=== PATIENT | female | born 1950 | race Caucasian/White ===

== ENCOUNTER 2020-09-30 10:26 | Outpatient (REF) | payer OTHER, SELFPAY | END 2020-09-30 10:27 | disposition home or self-care (01) | LOC: HO.LAB 10:26 | PROVIDERS: Visit Provider Internal Medicine | DX: Z20.822 Contact with and (suspected) exposure to COVID-19 (principal) | CPT/HCPCS: 36415; C9803; U0003; U0005 ==

== ENCOUNTER 2020-12-20 10:08 | Outpatient (REF) | payer OTHER, SELFPAY ==
[2020-12-20 11:05] LABS: COVID-19 Test Negative (Negative)
== END 2020-12-20 10:09 | disposition home or self-care (01) ==
LOC: HO.LAB 10:08
PROVIDERS: Visit Provider Internal Medicine
DX: Z20.822 Contact with and (suspected) exposure to COVID-19 (principal)
CPT/HCPCS: 36415; 87635; C9803

== ENCOUNTER 2021-02-03 09:25 | Outpatient (REF) | payer OTHER, SELFPAY | END 2021-02-03 09:26 | disposition home or self-care (01) | LOC: HO.LAB 09:25 | PROVIDERS: PCP Nurse Practitioner Adult Health; Visit Provider Internal Medicine | DX: Z20.822 Contact with and (suspected) exposure to COVID-19 (principal) | CPT/HCPCS: C9803; U0003; U0005 ==

== ENCOUNTER 2023-06-15 18:47 | Emergency (ER) | payer OTHER, SELFPAY ==
--- NOTE | ~2023-06-15 | XR_ITS ---
EXAMINATION: XR CHEST CLINICAL INFORMATION: Cough. COMPARISON: None available. TECHNIQUE: 2 views of the chest were obtained. FINDINGS: The cardiomediastinal silhouette is normal. There is no focal lung consolidation or pleural effusion. The bony structures and soft tissues are unremarkable. XR/XR chest 2V IMPRESSION: No active cardiopulmonary disease.
[2023-06-15 18:53] VITALS: BP 144/61; PULSE 83; RESP 22; TEMP 36.5; O2SAT 96; BMI 44.0
--- NOTE | 2023-06-15 18:56 | ED_ITS ---
HPI - General Adult General Chief complaint: Upper Respiratory Symptoms Stated complaint: Diff breathing Time Seen by Provider: 06/15/23 20:07 Source: patient History of Present Illness HPI narrative: 72-year-old female who has a history of asthma presents for evaluation of shortness of breath and cough. Patient states that she along with her granddaughter has been having a cough. Patient states it is nonproductive. She has attributed to her asthma and has been using her inhaler. She has not been on any recent antibiotics or steroids. Symptoms have been going on for approximately 1 week. No recent hospital admissions. She denies any dyspnea on exertion or chest pain. She does report a mild sinus congestion as well. She has not tried any [id number] medication for this. She denies any tobacco use. Patient has otherwise been feeling well. Given the prolonged nature of symptoms, patient presents the emergency department today. Related Data Previous Rx's Medication Instructions Recorded doxycycline hyclate 100 mg capsule 100 mg PO BID 7 days #14 caps 06/15/23 Allergies Allergy/AdvReac Type Severity Reaction Status Date / Time corn Allergy Abdominal Verified 06/15/23 18:53 Pain mushroom Allergy Abdominal Verified 06/15/23 18:53 Pain Sulfa (Sulfonamide Allergy Hives Verified 06/15/23 18:53 Antibiotics) Review of Systems Constitutional: Constitutional: Denies chills, Denies fever(s) and Denies headache(s) Eyes: Eyes: Denies change in vision and Denies other (No redness.) ENT: Denies headache(s), Denies nasal congestion, Denies nasal discharge, Denies neck pain and Denies sore throat Cardiovascular: Cardiovascular: Denies chest pain, Denies palpitations, Reports dyspnea, Denies dyspnea on exertion and Denies orthopnea Respiratory: Respiratory: Reports cough, Reports dyspnea and Denies dyspnea on exertion Gastrointestinal: Gastrointestinal: Denies abdominal pain, Denies melena, Denies hematochezia, Denies diarrhea, Denies nausea and Denies vomiting Musculoskeletal: Musculoskeletal: Denies back pain, Denies muscle weakness, Denies neck pain and Denies numbness Integumentary/Breasts: Skin/Breast: Denies rash Neurologic: Denies headache(s), Denies focal weakness and Denies numbness Psychiatric: Psychiatric: Denies depression Endocrine: Endocrine: Denies palpitations [facility] Past Medical History [facility] Narrative: Asthma Social History Social History Advance Directives: No Physical Exam ED Vital Signs: Vital Signs - 24 hr 06/15/23 18:53 06/15/23 19:58 06/15/23 19:58 Temperature 97.7 F 98.7 F Pulse Rate 83 78 Respiratory Rate 22 H 16 Blood Pressure 144/61 H 150/82 H Pulse Oximetry 96 95 95 Oxygen Delivery Method Room Air Room Air Room Air BMI result Body Mass Index 44.0 Const Other: Speaks full clear sentences. HENAZ General nose exam: No nasal discharge present and no nasal discharge noted Mouth: Normal oral and palatal mucosa present Neck Neck: Yes no lymphadenopathy Resp Effort & Inspection: normal respiratory effort Auscultation: clear to auscultation bilaterally, no rhonchi and no wheezes Cardio Rate: regular rate Rhythm: regular rhythm Skin General skin exam: no rashes or lesions noted Course Course Course Narrative: RME- 72-year-old female presents for evaluation of cough, shortness of breath for several months. Plan for viral swabs and chest x-ray. Medical Decision Making Medical Decision Making [facility] Narrative: 72-year-old female with a history of asthma, presents complaining of shortness of breath and cough. Lung sounds clear at this time. Negative viral panel and negative chest x-ray. Given that her symptoms have been going on for over 1 week and have not improved, will treat with doxycycline. Asthma appears to be well controlled at this time. Lab Data Labs: Lab Results 06/15/23 Range/Units 19:01 COVID-19 (KIRT) Negative (Negative) COVID-19 Clin Com See Note Influenza Type A (VIVI) Negative (Negative) Influenza Type B (VIVI) Negative (Negative) Influenza A & B Note See Note Radiology Impression Discussion of test interpretation with radiology: I have reviewed the radiologist's reading. Radiologist Impression: [address] [address] XRay Report Signed Patient: Carisa Montero MR#: [id number] : 1950 Acct:[id number] Age/Sex: 72 / F ADM Date: 06/15/23 Loc: .ED Attending Dr: Ordering Physician: Lv Black Date of Service: 06/15/23 Procedure(s): XR chest 2V Accession Number(s): [id number] cc: Becky French POWER PLANT MECHANIC; Lv Black ~ EXAMINATION: XR CHEST CLINICAL INFORMATION: Cough. COMPARISON: None available. TECHNIQUE: 2 views of the chest were obtained. FINDINGS: The cardiomediastinal silhouette is normal. There is no focal lung consolidation or pleural effusion. The bony structures and soft tissues are unremarkable. XR/XR chest 2V IMPRESSION: No active cardiopulmonary disease. Dictated By: Lebron Ford Signed By: <Electronically signed by Lebron Ford in OV> 06/15/231944 DD/ 22 TD/TT: Tobacco Flavorer: Discharge Plan Discharge Clinical Impression: Bronchitis Patient Disposition: Home, Self-Care Instructions: Acute Bronchitis (ED) Additional Instructions: Doxycycline as directed. Finish all antibiotics. Continue your albuterol inhaler. Follow-up with your primary care provider. Call this week to schedule a follow- up appointment. Return to the emergency department if you have any worsening of symptoms, or any concerns. Get well soon! Prescriptions: New doxycycline hyclate 100 mg capsule 100 mg PO BID 7 Days Qty: 14 0RF Interventions: ED Discharge Assessment Last Done: 06/15/23 20:43 Discharge Date/Time: 06/15/23 20:46
[2023-06-15 19:53] LABS: COVID-19 Test Negative (Negative); IDNOW Serial# 08D9AD1C; IDNOW Serial# BCCEAD1C; Influenza A Negative (Negative); Influenza B2 Negative (Negative)
[2023-06-15 19:58] VITALS: BP 150/82; PULSE 78; RESP 16; TEMP 37.1; O2SAT 95
--- NOTE | 2023-06-15 20:00 | PC.NURSE ---
Pt ca&ox4, no signs of distress. Pt denies pain. Pt reports cough x2 months with increase in cough, congestion, mucus ([id number]), post nasal drip. Pt reports a PMH of recurrent sinus infections. granddaughter in the room with pt. Plan of care ongoing.
== END 2023-06-15 20:46 | disposition home or self-care (01) ==
PROVIDERS: Physician Assistant; Emergency Provider Emergency Medicine; PCP Nurse Practitioner Adult Health
DX: J40 Bronchitis, not specified as acute or chronic (principal); Z11.52 Encounter for screening for COVID-19; I10 Essential (primary) hypertension; E78.00 Pure hypercholesterolemia, unspecified
CPT/HCPCS: 71046; 87502; 87635; 99283; 99284

== ENCOUNTER 2023-06-19 09:43 | Outpatient (AMB) | payer OTHER, SELFPAY ==
--- NOTE | 2023-06-19 09:45 | MHC.PC.OV ---
Vital Signs 06/19/23 09:54 Height 5 ft 4 in Weight 257 lb 8 oz BMI 44.2 BP 126/68 Blood Pressure Location Rt brachial Position Sitting Respiration 16 Pulse 86 Pulse Source Pulse Oximeter Temp 98.7 F Temp Source Oral Pulse Oximetry (%) 97 Intake Visit Reasons: TRAINING OFFICER, neck and back pain Intake Note: Patient is here today to establish care as a new patient. Patient was previously seen by [facility], patient reports she has requested a record transfer and she has not received an update for this request. Patient reports she has neck and back pain due to hard work. 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 Accompanied by: Self / Same As Patient Allergies corn Allergy (Verified 06/19/23 09:58) Abdominal Pain mushroom Allergy (Verified 06/19/23 09:58) Abdominal Pain Sulfa (Sulfonamide Antibiotics) Allergy (Verified 06/19/23 09:58) Hives Medication List - Last Reconciled 06/19/23 by Orestes Chinchilla MD aripiprazole (Abilify) 10 mg PO DAILY buspirone 15 mg PO BID dicyclomine 10 mg PO TID PRN doxycycline hyclate 100 mg PO BID 7 days levothyroxine 75 mcg PO DAILY lisinopril 30 mg PO DAILY loratadine (Allergy Relief (loratadine)) 10 mg PO DAILY oxycodone ER (OxyContin) 60 mg PO BID simvastatin 20 mg PO DAILY venlafaxine ER 150 mg PO DAILY Tobacco use date assessed: 06/19/23 Fall risk assessment: 1 Fall in past year Last assessed Fall Risk: 06/19/23 Dental Screening Dental Screen Date: 06/19/23 Did you have a dental visit in the last 12 months?: Yes Did you have a dental problem in the last 6 months where you did not have access to dental care?: No Was dental information given to patient?: Patient has dentist HPI TRAINING OFFICER, neck and back pain HPI Details New patient Prior PCP:? Rajwinder French Last office visit/CPE: a few weeks ago. Recent CPE Acute issue(s): Neck & Back pain. h/o Laminectomy C4-6 1995 PMHx: HTN, HLD, Achalasia & GERD. Anxiety & Depression. IBS, Asthma, Hypothyroidism SurgHx: Laminectomy in 1995, Plantar fasciitis release. Tubal Ligation. FHx: Mom: Breast CA, Uterine CA, Colon CA, Throat CA. Dad: Heart Dz SocHx: Smoked 1/2 ppd x 15 yrs and Quit Age 31. EtOH: Special Occassions 1 drink. MJ almost daily. PFSH Medical History (Updated 06/19/23 @ 10:46 by Dre Sahu) Depression Anxiety Incontinence Achalasia GERD (gastroesophageal reflux disease) IBS (irritable bowel syndrome) Osteoarthritis cervical spine Edema Arthritis High blood cholesterol Hypertension Sinusitis Asthma Plantar fasciitis Surgical History (Updated 06/19/23 @ 10:24 by Jodi Christianson CMA) History of tubal ligation History of laminectomy Family History (Updated 06/19/23 @ 10:26 by Jodi Christianson CMA) Mother AA (alcohol abuse) Cancer Father Hypertension Social History (Updated 06/19/23 @ 10:18 by Jodi Christianson CMA) Household Members: Adopted Family Housing: Apartment Alcohol intake: never Patient Tobacco Use Status: Former Tobacco user Cigarette Packs Per Day: 0.5 Cigarettes Per Day: 10 Years Smoked: 15 e-Cigarette/Vaping Use: Never Used Substance Use Type: Marijuana service: No Current occupational status: disabled (Neck and back pain) Current occupational exposures/hazards: No Sexual orientation: Unable to collect Gender identity: Unable to collect Cognitive needs: No Hearing needs: No Vision needs: Yes (wears glasses) Questionnaire PHQ-9 Over the last 2 weeks, how often have you been bothered by any of the following problems? 1. Little interest or pleasure in doing things: not at all 2. Feeling down, depressed, or hopeless: several days 3. Trouble falling or staying asleep, or sleeping too much: not at all 4. Feeling tired or having little energy: several days 5. Poor appetite or overeating: not at all 6. Feeling bad about yourself - or that you are a failure or have let yourself or your family down: not at all 7. Trouble concentrating on things, such as reading the newspaper or watching television: not at all 8. Moving or speaking so slowly that other people could have noticed. Or the opposite - being so fidgety or restless that you have been moving around a lot more than usual: not at all 9. Thoughts that you would be better off or of hurting yourself in some way: not at all Total score: 2 Depression Screening Interpretation: Negative Depression Screening Done: Yes 14988 - PHQ-9 Billing: Yes Source: Developed by Drs. Lebron Silva, Bri Nuñez, Fareed Willoughby and colleagues, with an educational mary from [employer]. Thrive Questionnaire Date Thrive assessed: 06/19/23 I am a: Patient What is your living situation today?: I have a steady place to live Within the past 12 months, did the food you bought not last and you didn't have the money to get more?: Never true Within the past 12 months, did you worry whether your food would run out before you got money to buy more?: Never true Do you have trouble paying for medicines?: No Do you have trouble getting transportation to medical appointments?: No Do you have trouble paying your heating and electricity bill?: No Do you have trouble taking care of your child, family member or friend?: No Do you have trouble with day-to-day activities such as bathing, preparing meals, shopping, managing finances, etc.?: Yes Are you currently unemployed and looking for a job?: No Are you interested in more education?: No Please select the resources that you would like help with: Daily support (Bathing, preparing meals, shopping) Currently or been in a relationship where the following occur: no concerns reported AUDIT C Alcohol Use Questionnaire (AUDIT-C) 1. How often do you have a drink containing alcohol?: Never 3. How often do you have six or more drinks on one occasion?: Never Total Score: 0 KVNG-7 AMB Questionnaire KVNG-7 Date KVNG - 7 assessed: 06/19/23 Feeling nervous, anxious, or on edge: 1 = Several days Not being able to stop or control worryin = Not at all Worrying too much about different things: 0 = Not at all Trouble relaxin = Several days Being so restless that it is hard to sit still: 1 = Several days Becoming easily annoyed or irritable: 0 = Not at all Feeling afraid as if something awful might happen: 0 = Not at all Total KVNG-7 score (0-4 normal; 5-9 mild; 10-14 moderate; 15-21 severe): 3 Source: Developed by Drs. Lebron Silva, Bri Nuñez, Fareed Willoughby and colleagues, with an educational mary from [employer]. KVNG-7 Assessment Billing KVNG-7 Assessment Tool: KVNG-7 Assessment 21844 ACT Questionnaire In the past 4 weeks, how much of the time did your asthma keep you from getting as much done at work, school or at home?: None of the time During the past 4 weeks, how often have you had shortness of breath?: 1-2 times a week During the past 4 weeks, how often did your asthma symptoms wake you up at night or earlier than usual in the morning?: Not at all During the past 4 weeks, how often have you had to use your rescue inhaler or nebulizer medication?: 2-3 times a week How would you rate your asthma control during the past 4 weeks?: Well controlled ACT Interpretation: Negative Score: 21 Review of Systems Const Denies chills, Denies fatigue, Denies fever(s), Denies headache(s) and Denies weakness ENT Denies dizziness and Denies headache(s) Card Denies chest pain, Denies lightheadedness, Denies dyspnea and Denies other (Palpitations) Resp Denies cough, Denies dyspnea, Denies wheezing and Denies other ( shortness of breath) Musc Denies numbness and Denies tingling Neuro Denies dizziness, Denies headache(s), Denies numbness, Denies tingling, Denies paresthesias and Denies weakness Psych Denies anxiety and Denies depression Endo Denies fatigue Aller/Immun Denies wheezing Physical exam (Primary Care) Vital Signs: Last Vital Signs Temp 98.7 F 06/19/23 09:54 Pulse 86 06/19/23 09:54 Resp 16 06/19/23 09:54 BP 126/68 06/19/23 09:54 Pulse Ox 97 06/19/23 09:54 BMI result Body Mass Index 44.2 Tobacco/Smoking Status: Tobacco use Status Tobacco use date assessed 06/19/23 06/19/23 10:09 Patient Tobacco Use Status Former Tobacco user 06/19/23 10:18 Tobacco use type 06/19/23 10:15 e-Cigarette/Vaping Use Never Used 06/19/23 10:18 PHQ-9: PHQ-9 Score PHQ-9: Total score 2 06/19/23 10:27 Depression Screening Interpretation: Negative Thrive Assessment: Date of Thrive Assessment Date Thrive assessed 06/19/23 06/19/23 10:13 Currently or been in a relationship where the following occur: no concerns reported Const General: no acute distress and well developed Nutritional Appearance: well nourished Orientation/consciousness: patient oriented x3 HENMT Head: Yes normocephalic and Yes atraumatic Eyes General: appearance normal, both eyes and all related structures Pupils: Equal, round and reactive pupils present EOM: EOMs intact bilaterally Resp Effort & Inspection: normal respiratory effort Auscultation: clear to auscultation bilaterally Cardio Rate: regular rate Rhythm: regular rhythm Heart sounds: S1 normal heart sound present, S2 normal heart sound present, no gallops, no murmurs and no rubs Neuro General: patient oriented x3 and gait normal Cranial nerves: Yes Equal, round and reactive pupils present Psych Affect: normal affect Assessment and Plan Assessment & Plan (1) Hypertension: Code(s): I10 - Essential (primary) hypertension Plan: Blood?pressure?is?controlled.??Goal?is?less?than?140/90 Continue?current?medication (2) High blood cholesterol: Code(s): E78.00 - Pure hypercholesterolemia, unspecified Plan: Check?lipids (3) Cervicalgia: Code(s): M54.2 - Cervicalgia Plan: Chronic?Neck?and?back?pain with?prior?cervical?laminectomy. She?is?on?rather?high?doses?of?opioids?and?we?discussed?that?we?will?need?more?investigation?regarding?this. I?am?referring?her?to?pain?management (4) Back pain: Code(s): M54.9 - Dorsalgia, unspecified Plan: As?above (5) IBS (irritable bowel syndrome): Code(s): K58.9 - Irritable bowel syndrome without diarrhea Plan: Increase?hydration?and?will?give?her?a?script?for?soluble?fiber Continue?dicyclomine (6) Asthma: Code(s): J45.909 - Unspecified asthma, uncomplicated Plan: Continue?inhaler?as?needed (7) GERD (gastroesophageal reflux disease): Code(s): K21.9 - Gastro-esophageal reflux disease without esophagitis Plan: Achalasia?and?GERD Continue?pantoprazole (8) Hypothyroidism: Code(s): E03.9 - Hypothyroidism, unspecified Plan: Check?thyroid?hormone?levels Continue?levothyroxine (9) Laboratory exam ordered as part of routine general medical examination: Code(s): Z00.00 - Encounter for general adult medical examination without abnormal findings Plan: Check?labs Medications: New calcium polycarbophil (FiberCon) 625 mg PO DAILY 30 tabs 2RF 30 days Coding Level of Care Code New Pt Level 4 (90654) Diagnoses Hypertension I10 High blood cholesterol E78.00 Cervicalgia M54.2 Back pain M54.9 IBS (irritable bowel syndrome) K58.9 Asthma J45.909 GERD (gastroesophageal reflux disease) K21.9 Hypothyroidism E03.9 Laboratory exam ordered as part of routine general medical examination Z00.00 Additional Codes KVNG-7 Assessment Billing - KVNG-7 Assessment Tool: KVNG-7 Assessment 36006 ([id number])
[2023-06-19 09:54] VITALS: BP 126/68; PULSE 86; RESP 16; TEMP 37.1; O2SAT 97; BMI 44.2
== END 2023-06-19 10:54 | disposition home or self-care (01) ==
PROVIDERS: PCP Nurse Practitioner Adult Health; Visit Provider Family Medicine
DX: I10 Essential (primary) hypertension (principal); E78.00 Pure hypercholesterolemia, unspecified; M54.2 Cervicalgia; M54.9 Dorsalgia, unspecified; K58.9 Irritable bowel syndrome, unspecified; J45.909 Unspecified asthma, uncomplicated; K21.9 Gastro-esophageal reflux disease without esophagitis; E03.9 Hypothyroidism, unspecified; Z00.00 Encounter for general adult medical examination without abnormal findings
CPT/HCPCS: 99204

== ENCOUNTER 2023-07-26 10:41 | Emergency (ER) | payer OTHER, SELFPAY ==
--- NOTE | ~2023-07-26 | XR_ITS ---
EXAMINATION: XR KNEE, LEFT CLINICAL INFORMATION: Pain. COMPARISON: None available. TECHNIQUE: Four views of the left knee. FINDINGS: There is mild loss of medial compartment joint space. There is no bony erosive changes, loose bodies or joint effusion. No acute fracture or dislocation seen. XR/XR knee LT 3V IMPRESSION: Mild degenerative changes medial compartment left knee. No visible acute fracture or dislocation seen.
[2023-07-26 10:58] VITALS: BP 177/94; PULSE 97; RESP 20; TEMP 36.4; O2SAT 97; BMI 42.9
--- NOTE | 2023-07-26 17:09 | ED.EXTPRO ---
HPI - Extremity Problem General Chief complaint: Extremity Problem Stated complaint: Knee pain Time Seen by Provider: 07/26/23 17:05 Source: patient, RN notes reviewed and old records reviewed Mode of arrival: ambulatory History of Present Illness HPI Narrative: 73-year-old female with a past medical history of hypothyroid, asthma, IBS, GERD, HTN, HLD, chronic opiate use, presenting to the ED complaining of left knee pain x 3 days. Denies known injury/trauma or fall. Patient states she may have twisted knee. Denies numbness, tingling, weakness, pedal edema, calf pain, fever. Admits takes OxyContin for back pain which is not helping. MD Complaint: extremity pain and extremity swelling Onset (ago): day(s) Related Data Home Medications Medication Instructions Recorded Confirmed aripiprazole 10 mg tablet (Abilify) 10 mg PO DAILY 06/19/23 06/19/23 buspirone 15 mg tablet 15 mg PO BID 06/19/23 06/19/23 dicyclomine 10 mg capsule 10 mg PO TID PRN abdominal pain 06/19/23 06/19/23 levothyroxine 75 mcg capsule 75 mcg PO DAILY 06/19/23 06/19/23 lisinopril 30 mg tablet 30 mg PO DAILY 06/19/23 06/19/23 loratadine 10 mg tablet (Allergy 10 mg PO DAILY 06/19/23 06/19/23 Relief (loratadine)) oxycodone 60 mg tablet,crush 60 mg PO BID 06/19/23 06/19/23 resistant,extended release 12 hr (OxyContin) simvastatin 20 mg tablet 20 mg PO DAILY 06/19/23 06/19/23 venlafaxine 150 mg 150 mg PO DAILY 06/19/23 06/19/23 capsule,extended release 24 hr Previous Rx's Medication Instructions Recorded doxycycline hyclate 100 mg capsule 100 mg PO BID 7 days #14 caps 06/15/23 calcium polycarbophil 625 mg 625 mg PO DAILY 30 days #30 tabs 06/19/23 tablet (FiberCon) diclofenac sodium 1 % topical gel 2 g topical QID PRN pain (scale 07/26/23 (Aleve (diclofenac)) score 1-3) #100 grams ketorolac 10 mg tablet 10 mg PO TID PRN pain 5 days #15 07/26/23 tabs Allergies Allergy/AdvReac Type Severity Reaction Status Date / Time corn Allergy Abdominal Verified 06/19/23 09:58 Pain mushroom Allergy Abdominal Verified 06/19/23 09:58 Pain Sulfa (Sulfonamide Allergy Hives Verified 06/19/23 09:58 Antibiotics) Review of Systems Review of Systems: Constitutional: No Fever, No Chills ENT/Mouth: No Ear Pain, No Nasal Congestion, No sore throat, No Rhinorrhea, No Swallowing Difficulty Cardiovascular: No Chest Pain, No SOB Respiratory: No Cough, No Sputum Gastrointestinal: No Nausea, No Vomiting,No Abdominal pain Genitourinary: No Dysuria, No Urinary Frequency, No Hematuria, No Flank Pain Musculoskeletal:+joint pain, No Myalgias, + Joint Swelling Skin: No Skin Lesions, No rash Neuro: No Weakness, No Numbness, No Paresthesias Yes all other systems are reviewed and are negative Constitutional: Constitutional: Reports as per [facility] Past Medical History Attestation statement: The following information was validated with the patient. Source: old records reviewed Medical History Depression Anxiety Incontinence Achalasia GERD (gastroesophageal reflux disease) IBS (irritable bowel syndrome) Osteoarthritis cervical spine Edema Arthritis High blood cholesterol Hypertension Sinusitis Asthma Plantar fasciitis Surgical History History of tubal ligation History of laminectomy Family History Family History Mother AA (alcohol abuse) Cancer Father Hypertension Social History Social History Household Members: Adopted Family Housing: Apartment Alcohol intake: never Patient Tobacco Use Status: Former Tobacco user Cigarette Packs Per Day: 0.5 Cigarettes Per Day: 10 Years Smoked: 15 e-Cigarette/Vaping Use: Never Used Substance Use Type: Marijuana Advance Directives: No Advance Directives Information Provided: No service: No Current occupational status: disabled (Neck and back pain) Current occupational exposures/hazards: No Sexual orientation: Unable to collect Gender identity: Unable to collect Cognitive needs: No Hearing needs: No Vision needs: Yes (wears glasses) Physical Exam Vital Signs: Vital Signs: Last Vital Signs Temp 97.6 F 07/26/23 10:58 Pulse 97 07/26/23 10:58 Resp 20 07/26/23 10:58 BP 177/94 H 07/26/23 10:58 Pulse Ox 97 07/26/23 10:58 O2 Del Method Room Air 07/26/23 10:58 BMI result Body Mass Index 42.9 Const: General: cooperative, healthy appearing and no acute distress Orientation/consciousness: patient oriented x3 Limitations: no limitations HEENT: Head: Yes normal to inspection and Yes atraumatic Ears: hearing grossly normal bilaterally General nose exam: Normal external nose present Face and sinus: Yes normal facial exam Eyes: General: appearance normal, both eyes and all related structures EOM: EOMs intact bilaterally Neck: Neck: Yes normal visual inspection and Yes no meningeal signs Resp: Effort & Inspection: normal respiratory effort and no respiratory distress Cardio: Rate: regular rate : General: Yes no CVA tenderness Back/Spine/Pelvis: Back: no CVA tenderness Skin: Rashes: no rashes Wounds: no wounds Neuro: General: patient oriented x3, tone normal and no meningeal signs Cranial nerves: Yes CN's II-XII intact bilaterally Gait exam (Neuro): Normal gait present Extrem: Other: Left knee with mild swelling. No deformity/erythema. Diffusely tender to palpation. Limited flexion and extension secondary to pain with chronic LE bilateral pitting edema. No calf tenderness. Neurovascularly intact distally. Course Course Course Narrative: XR knee LT 3V IMPRESSION: Mild degenerative changes medial compartment left knee. No visible acute fracture or dislocation seen. Results discussed with patient including worrisome signs and symptoms and strict return precautions, and when to return to the emergency department. They verbalized understanding and feel safe for discharge at this time. Medical Decision Making Medical Decision Making MDM Narrative: 73-year-old female with a past medical history of hypothyroid, asthma, IBS, GERD, HTN, HLD, chronic opiate use, presenting to the ED complaining of left knee pain x 3 days. On exam vital signs stable, NAD, nontoxic appearing, physical exam as noted above. Concern for osteoarthritis vs tendon/ligamental or meniscal injury. No evidence of septic joint/arthritis. Unlikely fracture Plan: X-ray, pain control. Per [facility] review patient filled OxyContin ER 60 mg on 07/11/2023 28 days worth, 56 pills Discussed at length with patient limitation of chronic opiates with what we can do today in the emergency department Please refer to course for remaining clinical decision making, interpretation of labs/imaging results, and discussions with consultants and/or family members. Differential Diagnosis Differential Diagnoses: The differential diagnosis associated with the presentation includes As above Radiology Impression Discussion of test interpretation with radiology: I have reviewed the radiologist's reading. External Record Review External record reviewed: Inpatient record, Office record, Outpatient record, Prior outpatient labs, Prior outpatient radiology, Primary care record and Outside ED record Tests considered The following testing was considered but not selected: As above Discharge Plan Discharge Clinical Impression: Knee osteoarthritis Patient Disposition: Home, Self-Care Instructions: Osteoarthritis (DC) Additional Instructions: Your x-ray shows osteoarthritis. Continue taking previously prescribed opiates In addition ketorolac as an anti-inflammatory/pain medicine take with food. Please do not take both ketorolac trauma Motrin/Aleve or ibuprofen, only be take 1 of these medications as they are all in the same class Diclofenac as a topical anti-inflammatory/pain medicine Follow-up with her doctor and orthopedic Prescriptions: New ketorolac 10 mg tablet 10 mg PO TID PRN (Reason: pain) 5 Days Qty: 15 0RF diclofenac sodium [Aleve (diclofenac)] 1 % gel 2 g topical QID PRN (Reason: pain (scale score 1-3)) Qty: 100 0RF Rx Instructions: apply to single elbow, wrist or hand; for hand includes palm/fingers/back of hand No Action doxycycline hyclate 100 mg capsule 100 mg PO BID 7 Days Qty: 14 0RF venlafaxine 150 mg capsule,extended release 24hr 150 mg PO DAILY buspirone 15 mg tablet 15 mg PO BID levothyroxine 75 mcg capsule 75 mcg PO DAILY lisinopril 30 mg tablet 30 mg PO DAILY aripiprazole [Abilify] 10 mg tablet 10 mg PO DAILY simvastatin 20 mg tablet 20 mg PO DAILY oxycodone [OxyContin] 60 mg tablet,oral only,ext.rel.12 hr 60 mg PO BID loratadine [Allergy Relief (loratadine)] 10 mg tablet 10 mg PO DAILY dicyclomine 10 mg capsule 10 mg PO TID PRN (Reason: abdominal pain) calcium polycarbophil [FiberCon] 625 mg tablet 625 mg PO DAILY 30 Days Qty: 30 2RF Referrals: [facility] [Provider Group] Becky French, [employer]PERATOR [Primary Care Provider] -
[2023-07-26] MEDS: Ketorolac Tromethamine 30 MG/ML VIAL IM (18:53)
== END 2023-07-26 19:06 | disposition home or self-care (01) ==
PROVIDERS: Emergency Provider Internal Medicine; PCP Nurse Practitioner Adult Health
DX: M17.12 Unilateral primary osteoarthritis, left knee (principal); M25.562 Pain in left knee; I10 Essential (primary) hypertension; E78.00 Pure hypercholesterolemia, unspecified; Z87.891 Personal history of nicotine dependence; Z79.899 Other long term (current) drug therapy; Z79.02 Long term (current) use of antithrombotics/antiplatelets
CPT/HCPCS: 73562; 96372; 99283; 99284; J1885

== ENCOUNTER 2023-10-27 19:15 | Emergency (ER) | payer OTHER, SELFPAY ==
--- NOTE | ~2023-10-27 | XR_ITS ---
EXAMINATION: XR LUMBOSACRAL SPINE CLINICAL INFORMATION: Lower back pain. COMPARISON: Chest x-ray dated 06/15/2023. TECHNIQUE: Three views of the lumbosacral spine. FINDINGS: Normal alignment. No acute fracture or abnormal paraspinal soft tissue changes. Moderate degenerative disc disease at L4-L5 and L5-S1 with disc space narrowing and vertebral endplate sclerosis and spurring. Moderate facet arthropathy in the mid and lower lumbar spine. Mild vertebral spondylosis in lower thoracic spine. Sacroiliac joints, pubic symphysis and hip joints to the extent included are unremarkable. Approximately 0.2 cm calcification seen projected over the lower pole of the left kidney, likely a small left renal calculus. Several phleboliths are seen in the pelvis. Bowel gas pattern is unremarkable. XR/XR lumbar spine 2-3V IMPRESSION: * No acute fracture or malalignment. * Moderate degenerative disc disease and facet arthropathy in the mid and lower lumbar spine. * Probable 0.2 cm left renal calculus.
--- NOTE | ~2023-10-27 | CT_ITS ---
EXAMINATION: CT ABDOMEN AND PELVIS WITHOUT CONTRAST CLINICAL INFORMATION: Left flank pain. COMPARISON: None available. TECHNIQUE: Multidetector volumetric imaging was performed from the superior aspect of the liver through the pubic symphysis. Sagittal and coronal reformatted images were obtained on the technologist's workstation. This CT examination was performed using dose optimization techniques as appropriate, variously including the following: *Automated exposure control *Adjustment of mA and/or kV according to patient size (this includes techniques or standardized protocols for targeted exams where dose is matched to indication/reason for exam; i.e. extremities or head) *Use of iterative reconstruction technique DLP: 1140 mGy-cm FINDINGS: LUNG BASES: The visualized lung bases are unremarkable. LIVER, GALLBLADDER, AND BILIARY TREE: The liver is normal in size, shape, and attenuation. No focal hepatic lesion or biliary ductal dilatation is present. The gallbladder is unremarkable with no evidence of radiopaque gallstones, gallbladder wall thickening, or obvious pericholecystic inflammatory changes. PANCREAS: Unremarkable. SPLEEN: Unremarkable. ADRENAL GLANDS: Unremarkable. KIDNEYS AND URETERS: The kidneys are normal in size, shape, and attenuation. No hydronephrosis, hydroureter, or calculi seen. No perinephric stranding. BLADDER: Unremarkable. GASTROINTESTINAL TRACT: The small and large bowel are unremarkable. The appendix is unremarkable. ABDOMINAL WALL: No significant hernia is appreciated. LYMPH NODES: Normal. VASCULAR: Unremarkable. PELVIC VISCERA: Unremarkable. OSSEOUS STRUCTURES: Multilevel degenerative spondylosis spine. CT/CT abdomen pelvis wo IV con IMPRESSION: No acute abnormality CT scan abdomen pelvis. Fleischner guidelines were followed.
[2023-10-27 19:25] VITALS: BP 131/65; PULSE 83; RESP 18; TEMP 36.3; O2SAT 98; BMI 42.9
--- NOTE | 2023-10-27 19:26 | ED_ITS ---
HPI - General Adult General Chief complaint: Back Pain/Injury Stated complaint: Bilateral leg swelling/Back pain/Hand numbness Time Seen by Provider: 10/27/23 21:08 Source: patient and family Mode of arrival: ambulatory Limitations: no limitations History of Present Illness HPI narrative: 73-year-old female with a history of hypertension, hyperlipidemia, asthma, hyperthyroidism, GERD, IBS, chronic neck and upper back pain status post laminectomy who presents emergency department for evaluation of lower back left flank pain x2 days. She states the pain came on suddenly and has been intermittent. She describes it as a knife-like pain which is 10/10 at its worse and is currently 7/10. She denies any injury to her back. The pain does not change with movement or breathing. The patient denied fever, chills, cough, chest pain or shortness of breath. She has had no nausea vomiting or diarrhea. She has noted some urinary frequency but no dysuria. Patient states that she also has noted swelling of her lower extremities which is symmetric. She believes that she had similar swelling in the past and had taken a course of Lasix with improvement of the swelling. Related Data Home Medications Medication Instructions Recorded Confirmed aripiprazole 10 mg tablet (Abilify) 10 mg PO DAILY 06/19/23 06/19/23 buspirone 15 mg tablet 15 mg PO BID 06/19/23 06/19/23 dicyclomine 10 mg capsule 10 mg PO TID PRN abdominal pain 06/19/23 06/19/23 levothyroxine 75 mcg capsule 75 mcg PO DAILY 06/19/23 06/19/23 lisinopril 30 mg tablet 30 mg PO DAILY 06/19/23 06/19/23 loratadine 10 mg tablet (Allergy 10 mg PO DAILY 06/19/23 06/19/23 Relief (loratadine)) oxycodone 60 mg tablet,crush 60 mg PO BID 06/19/23 06/19/23 resistant,extended release 12 hr (OxyContin) simvastatin 20 mg tablet 20 mg PO DAILY 06/19/23 06/19/23 venlafaxine 150 mg 150 mg PO DAILY 06/19/23 06/19/23 capsule,extended release 24 hr Previous Rx's Medication Instructions Recorded doxycycline hyclate 100 mg capsule 100 mg PO BID 7 days #14 caps 10/27/23 calcium polycarbophil 625 mg 625 mg PO DAILY 30 days #30 tabs 06/19/23 tablet (FiberCon) diclofenac sodium 1 % topical gel 2 g topical QID PRN pain (scale 07/26/23 (Aleve (diclofenac)) score 1-3) #100 grams ketorolac 10 mg tablet 10 mg PO TID PRN pain 5 days #15 07/26/23 tabs cyclobenzaprine 10 mg tablet 10 mg PO TID PRN pain, muscle 10/27/23 spasm #15 tabs furosemide 40 mg tablet (Lasix) 40 mg PO DAILY #14 tabs 10/27/23 ketorolac 10 mg tablet 10 mg PO Q6H PRN pain 5 days #20 10/27/23 tabs Allergies Allergy/AdvReac Type Severity Reaction Status Date / Time corn Allergy Abdominal Verified 10/27/23 19:25 Pain mushroom Allergy Abdominal Verified 10/27/23 19:25 Pain Sulfa (Sulfonamide Allergy Hives Verified 10/27/23 19:25 Antibiotics) Review of Systems 2 Review of Systems: Yes all other systems are reviewed and are negative [facility] Past Medical History [facility] Narrative: Social history: She denies tobacco, alcohol and drug use. Medical History Depression Anxiety Incontinence Achalasia GERD (gastroesophageal reflux disease) IBS (irritable bowel syndrome) Osteoarthritis cervical spine Edema Arthritis High blood cholesterol Hypertension Sinusitis Asthma Plantar fasciitis Surgical History History of tubal ligation History of laminectomy Family History Family History Mother AA (alcohol abuse) Cancer Father Hypertension Social History Social History Household Members: Adopted Family Housing: Apartment Alcohol intake: never Patient Tobacco Use Status: Former Tobacco user Cigarette Packs Per Day: 0.5 Cigarettes Per Day: 10 Years Smoked: 15 e-Cigarette/Vaping Use: Never Used Substance Use Type: Marijuana Advance Directives: No Advance Directives Information Provided: Yes service: No Current occupational status: disabled (Neck and back pain) Current occupational exposures/hazards: No Sexual orientation: Unable to collect Gender identity: Unable to collect Cognitive needs: No Hearing needs: No Vision needs: Yes (wears glasses) Physical Exam ED Vital Signs: Vital Signs - 24 hr 10/27/23 19:25 10/27/23 22:00 Temperature 97.3 F 98.2 F Pulse Rate 83 72 Respiratory Rate 18 16 Blood Pressure 131/65 138/63 Pulse Oximetry 98 97 Oxygen Delivery Method Room Air Room Air BMI result Body Mass Index 42.9 Vital signs were normal. Exam: General: Awake, alert in no distress, elevated weight 13.4 kg and BMI 42.9 kg per m2 Head: Normocephalic, atraumatic EENT: PERRL, Lids normal, sclera normal, conjunctiva normal, nose normal , ears normal, throat without erythema or exudates Neck: Supple, no adenopathy Lung: breath sounds symmetric, no wheezing, rales or rhonchi Chest: symmetric movement, nontender Heart: regular rate and rhythm, normal S1, S2 no murmurs or rubs Abdomen: soft, non-tender, nondistended, normal bowel sounds Back: No vertebral tenderness, patient does have tenderness palpation over the left paraspinal muscles with no spasm, no CVA tenderness Extremities: no deformities, moves all extremities symmetrically, 1+ pitting edema symmetric Neuro: Awake, alert, oriented, normal speech, cranial nerves intact, moves all extremities symmetrically Psych: Pleasant, cooperative Course Course Course Narrative: This is a rapid medical exam: Additional HPI, ROS, PE not included below will be deferred to primary provider. Patient is a 73-year-old female with history of asthma, HTN, arthritis, edema, IBS, GERD, anxiety and depression presenting to the emergency department with complaint of left lower back pain as well as bilateral lower leg swelling for the past 3-4 days. Called PCP who advised compression stockings but patient states she has been unable to try the stockings due to her back pain. Denies any urinary symptoms. Denies any fall or other trauma. Plan: lumbar x-ray, UA, labs Medications Administered Discontinued Medications Generic Name Dose Route Start Last Admin Trade Name Freq PRN Reason Stop Dose Admin Ketorolac Tromethamine 30 mg 10/27/23 21:37 10/27/23 21:48 Ketorolac Tromethamine 15 Mg/Ml Vial IVPUSH 10/27/23 21:38 30 mg ONCE STA Administration Medical Decision Making Medical Decision Making [facility] Narrative: 73-year-old female with a history of hypertension, hyperlipidemia, asthma, hyperthyroidism, GERD, IBS, chronic neck and upper back pain status post laminectomy who presents emergency department for evaluation of intermittent, severe, lower back/ left flank pain x2 days. Pain came on suddenly and has been intermittent, she describes it as a knife-like pain with no radiation to her abdomen, no change with movement or breathing. Patient also complained of lower extremity swelling x1 week. Vital signs were normal. Examination did reveal tenderness palpation of her left paraspinal muscles with no CVA tenderness and no spasm. Patient had no abdominal tenderness. She does have 1+ pitting edema in her lower extremities which are symmetric. Differential diagnosis: ?Includes but is not limited to musculoskeletal strain, renal colic, ureteral colic, urinary tract infection, anemia, electrolyte abnormality, peripheral edema, congestive heart failure Following evaluation was ordered: CBC, CMP, BNP, urinalysis, x-rays lumbar spine, CT scan abdomen pelvis without IV contrast Patient was initially treated with the following: IV insert, Toradol 30 mg IV Course: 23:36 My interpretation patient's laboratory evaluation is as follows: CBC was normal., bicarb elevated 30. Chloride low 109. AST and ALT elevated 34 and 48. Urinalysis negative. BNP normal 13. CT scan of the abdomen pelvis was unremarkable and did not reveal a clear cause for the patient's lower back and flank pain Patient's pain is most likely musculoskeletal. She was given Flexeril 10 mg orally. She was prescribed Flexeril 10 mg 3 times a day as needed for pain and Toradol 10 mg every 6 hours as needed for pain. Patient's peripheral edema will be treated with Lasix 40 mg once a day for 2 weeks. Admission/Observation Consideration of admission/observation: Escalation of care including admission/observation considered Lab Data [facility] Lab Attestation statement: I reviewed the patient's lab results. 10/27/23 19:35 10/27/23 19:35 Labs: Lab Results 10/27/23 10/27/23 Range/Units 19:35 20:26 WBC 6.3 (4.8-10.8) X10*3/uL RBC 3.80 L (4.20-5.50) X10*6/uL Hgb 12.1 (12.0-16.0) g/dl Hct 35.9 L (37.0-47.0) % MCV 94.5 (80.0-98.0) fL MCH 31.8 (27.0-33.0) pg MCHC 33.7 (31.0-35.0) g/dl RDW 12.4 (11.0-16.0) % Plt Count 220 (160-400) X10*3/uL MPV 9.9 (9.4-12.3) fL Immature Gran % (Auto) 0.3 (0.0-0.4) % Neut % (Auto) 67.4 (45-73) % Lymph % (Auto) 22.1 (20-40) % Ellis % (Auto) 8.9 (2-11) % Eos % (Auto) 1.0 (0-4) % Baso % (Auto) 0.3 (0-2) % Lymph # (Auto) 1.4 (1.2-4.9) X10*3/uL Ellis # (Auto) 0.6 (0.1-1.2) X10*3/uL Eos # (Auto) 0.1 (0.0-0.4) X10*3/uL Baso # (Auto) 0.0 (0.0-0.2) X10*3/uL Abs Immat Gran (auto) 0.02 (0.00-0.03) X10*3/uL Absolute Neuts (auto) 4.2 (2.0-8.3) x10*3/uL Absolute Nucleated RBC 0.000 (0.0-0.012) X10*3/uL Nucleated RBC % (auto) 0.0 (0.0-0.2) /100WBC Sodium 145 (135-145) mmol/L Potassium 4.1 (3.3-5.1) mmol/L Chloride 109 H (96-108) mmol/L Carbon Dioxide 30 H (22-29) mmol/L Anion Gap 10 L (12-20) BUN 17 H (9-16) mg/dL Creatinine 1.00 (0.5-1.4) mg/dL Estim Creat Clear Calc 62.7 Estimated GFR 55 Random Glucose 104 (60-115) mg/dL Calcium 9.3 (8.4-10.2) mg/dL Total Bilirubin 0.2 (0.0-1.0) mg/dL AST 34 H (5-31) U/L ALT 48 H (0-31) U/L Alkaline Phosphatase 93 (39-117) U/L B-Natriuretic Peptide 13 (<100) pg/mL Total Protein 6.8 (6.5-8.0) g/dL Albumin 3.8 (3.5-5.0) g/dL Urine Color Yellow Urine Appearance Clear Urine pH 6.0 (5.0-9.0) Ur Specific [place] 1.020 (1.005-1.025) Urine Protein Negative (Neg-Trace) mg/dL Urine Glucose (UA) Negative (Negative) mg/dL Urine Ketones Negative (Negative) mg/dL Urine Blood Negative (Negative) Urine Nitrite Negative (Negative) Ur Leukocyte Esterase Negative (Negative) Radiology Impression Discussion of test interpretation with radiology: I have reviewed the radiologist's reading. Radiologist Impression: CT abdomen pelvis wo IV con IMPRESSION: No acute abnormality CT scan abdomen pelvis. Fleischner guidelines were followed. Dictated By: Asad Sandy MD Independent Historian Clinical information obtained from an independent historian. History obtained from or confirmed by: Other Prescription Management I considered prescription management with: Other (Anti spasmodic-Flexeril. Diuretic-Lasix) Chronic Conditions Patient?s care impacted by: Hypertension and Other (Chronic pain syndrome) Discharge Plan Discharge Clinical Impression: Left flank pain, Peripheral edema Lower back pain Qualifiers: Chronicity: acute Back pain laterality: left Sciatica presence: without sciatica Qualified Code(s): M54.50 - Low back pain, unspecified Patient Disposition: Home, Self-Care Instructions: Acute Low Back Pain (ED), Edema (ED) Additional Instructions: Your blood work was unremarkable. Your urine did not reveal any red blood cells or evidence for an infection. The CT scan of your abdomen pelvis without IV contrast did not reveal any kidney stones or any other findings to explain your pain. Your pain is most likely caused by muscle injury of your lower back. Continue taking your medications as prescribed by your providers. Take Flexeril (cyclobenzaprine) 10 mg pills, 1 pill every 6-8 hours as needed for pain or spasm. ?This medication will make you sleepy. ?Do not drive or work while taking this medication. Take Toradol (ketorolac) 10 mg pills, 1 pill every 6 hours as needed for pain Take Lasix (furosemide) 40 mg once a day in the morning, this medication will make you urinate/pee for 4-6 hours. While you are taking Lasix reduce the amount of fluid that you are drinking so that you are peeing out more fluid then you are taking in. Also weigh yourself daily . You should lose anywhere from 2-6 lb in fluid weight. Follow-up with your doctor in 2 days. Please return to the emergency department if your symptoms get worse or if you develop any symptoms that are concerning to you. Prescriptions: New cyclobenzaprine 10 mg tablet 10 mg PO TID PRN (Reason: pain, muscle spasm) Qty: 15 0RF furosemide [Lasix] 40 mg tablet 40 mg PO DAILY Qty: 14 0RF ketorolac 10 mg tablet 10 mg PO Q6H PRN (Reason: pain) 5 Days Qty: 20 0RF No Action ketorolac 10 mg tablet 10 mg PO TID PRN (Reason: pain) 5 Days Qty: 15 0RF diclofenac sodium [Aleve (diclofenac)] 1 % gel 2 g topical QID PRN (Reason: pain (scale score 1-3)) Qty: 100 0RF Rx Instructions: apply to single elbow, wrist or hand; for hand includes palm/fingers/back of hand doxycycline hyclate 100 mg capsule 100 mg PO BID 7 Days Qty: 14 0RF venlafaxine 150 mg capsule,extended release 24hr 150 mg PO DAILY buspirone 15 mg tablet 15 mg PO BID levothyroxine 75 mcg capsule 75 mcg PO DAILY lisinopril 30 mg tablet 30 mg PO DAILY aripiprazole [Abilify] 10 mg tablet 10 mg PO DAILY simvastatin 20 mg tablet 20 mg PO DAILY oxycodone [OxyContin] 60 mg tablet,oral only,ext.rel.12 hr 60 mg PO BID loratadine [Allergy Relief (loratadine)] 10 mg tablet 10 mg PO DAILY dicyclomine 10 mg capsule 10 mg PO TID PRN (Reason: abdominal pain) calcium polycarbophil [FiberCon] 625 mg tablet 625 mg PO DAILY 30 Days Qty: 30 2RF
[2023-10-27 19:39] LABS: MANUAL DIFF FLAG NO
[2023-10-27 19:40] LABS: Basophils Percent Auto 0.3 % (0-2); Eosinophils Absolute Auto 0.1 X10*3/uL (0.0-0.4); Hematocrit 35.9 % (37.0-47.0); Hemoglobin 12.1 g/dl (12.0-16.0); Imm Gran Abs Auto 0.02 X10*3/uL (0.00-0.03); Imm Gran Pct Auto 0.3 % (0.0-0.4); Lymphocytes Absolute Auto 1.4 X10*3/uL (1.2-4.9); Lymphocytes Percent Auto 22.1 % (20-40); Mean Corpuscular HGB Conc 33.7 g/dl (31.0-35.0); Mean Corpuscular Hemoglobin 31.8 pg (27.0-33.0); Mean Corpuscular Volume 94.5 fL (80.0-98.0); Mean Platelet Volume 9.9 fL (9.4-12.3); Monocytes Absolute Auto 0.6 X10*3/uL (0.1-1.2); Monocytes Percent Auto 8.9 % (2-11); Neutrophils Absolute Auto 4.2 x10*3/uL (2.0-8.3); Neutrophils Percent Auto 67.4 % (45-73); Platelet Count 220 X10*3/uL (160-400); Red Cell Distribution Width 12.4 % (11.0-16.0); White Blood Count 6.3 X10*3/uL (4.8-10.8)
[2023-10-27 19:57] LABS: Alanine Aminotransferase 48 U/L (0-31); Albumin Level 3.8 g/dL (3.5-5.0); Alkaline Phosphatase 93 U/L (39-117); Anion Gap 10 (12-20); Aspartate Amino Transferase 34 U/L (5-31); Bilirubin Total 0.2 mg/dL (0.0-1.0); Blood Urea Nitrogen 17 mg/dL (9-16); Calcium 9.3 mg/dL (8.4-10.2); Carbon Dioxide 30 mmol/L (22-29); Chloride 109 mmol/L (96-108); Creatinine Clr Calc Pharmacy 62.7; Estimated Glomerular Filt Rate 55; Glucose Random 104 mg/dL (60-115); Potassium 4.1 mmol/L (3.3-5.1); Sodium 145 mmol/L (135-145); Total Protein 6.8 g/dL (6.5-8.0)
[2023-10-27 20:03] LABS: B Type Natriuretic Peptide 13 pg/mL (<100)
[2023-10-27 20:34] LABS: Appearance Urine Clear; Color Urine Yellow; Glucose Urine UA Negative (Negative); Leukocyte Esterase Urine Negative (Negative); Nitrite Urine Negative (Negative); Urine Blood Negative (Negative); Urine Ketones Negative (Negative); Urine Protein Negative (Neg-Trace)
[2023-10-27] MEDS: Ketorolac Tromethamine 15 MG/ML VIAL 30 MG IVPUSH (21:48)
[2023-10-27 22:00] VITALS: BP 138/63; PULSE 72; RESP 16; TEMP 36.8; O2SAT 97
[2023-10-28 00:10] VITALS: BP 150/75; PULSE 76; RESP 16; O2SAT 97
[2023-10-28] MEDS: Cyclobenzaprine HCl 10 MG TABLET PO (00:30)
== END 2023-10-28 00:38 | disposition home or self-care (01) ==
PROVIDERS: Registered Nurse Emergency; Emergency Provider Emergency Medicine Emergency Medical Services
DX: M54.50 Low back pain, unspecified (principal); I10 Essential (primary) hypertension; R60.9 Edema, unspecified; R10.9 Unspecified abdominal pain; Z79.899 Other long term (current) drug therapy
CPT/HCPCS: 36415; 72100; 74176; 80053; 81003; 83880; 85025; 96374; 99284; J1885

== ENCOUNTER 2024-04-16 05:47 | Emergency (ER) | payer OTHER, SELFPAY ==
--- NOTE | ~2024-04-16 | XR_ITS ---
EXAMINATION: XR CHEST CLINICAL INFORMATION: Shortness of breath COMPARISON: Chest radiograph 06/15/2023 TECHNIQUE: 2 views of the chest were obtained. FINDINGS: Similar mild asymmetric elevation of the right hemidiaphragm. No focal consolidation. Similar central vascular congestion. No pleural effusions or pneumothorax. The cardiomediastinal silhouette is unchanged. Degenerative changes of the thoracic spine. XR/XR chest 2V IMPRESSION: Similar central vascular congestion. No focal consolidation. Electronically signed by: Matthew Hall MD 04/16/2024 08:27 AM EDT
[2024-04-16 05:53] VITALS: BP 152/64; PULSE 97; RESP 20; TEMP 37.1; O2SAT 94; BMI 45.4
--- NOTE | 2024-04-16 06:57 | PC.NURSE ---
report given to Heike ALCAZAR
[2024-04-16 06:59] LABS: Influenza A PCR NEGATIVE (Negative); Influenza B PCR NEGATIVE (Negative); Resp Syncy Virus RNA Qual PCR NEGATIVE (Negative); SARS COV2 PCR INHOUSE NEGATIVE (Negative)
--- NOTE | 2024-04-16 07:04 | ECG_ITS ---
Test Reason : sob Blood Pressure : / mmHG Vent. Rate : 097 BPM Atrial Rate : 097 BPM P-R Int : 172 ms QRS Dur : 080 ms QT Int : 334 ms P-R-T Axes : 044 034 027 degrees QTc Int : 424 ms Normal sinus rhythm Normal ECG No previous ECGs available Referred By: Martha Witt Electronically Signed By:GAETANO ORELLANA
--- NOTE | 2024-04-16 07:05 | ED_ITS ---
HPI - URI/Sore Throat General Chief Complaint: Upper Respiratory Symptoms Stated Complaint: SOB, coughing, fever Time Seen by Provider: 04/16/24 06:50 Source: patient and RN notes reviewed Mode of arrival: ambulatory Limitations: no limitations History of Present Illness ED Provider: Martha Witt PA-C HPI Narrative: This is a 73-year-old female, with a history of asthma, hypertension, and achalasia, who presents emergency department with complaints of shortness of breath, fevers, cough, dizziness, and headaches x2 days. Patient states that she has been feeling short of breath and has been using her albuterol inhaler multiple times a day. She states that she also has been medicating herself with Tylenol to help with fevers, max temp 101? F. she also has been taking [id number] allergy meds which has not provided her with any relief. She believes that the dizziness is associated with cough. She denies any swelling in her lower legs. Her granddaughter is here sick with a cough as well. She denies any chest pain, palpitations, abdominal pain, nausea, vomiting or diarrhea. No urinary symptoms. She denies any other complaints or concerns at this time. MD elicited complaint: fever, cough, rhinorrhea and nasal congestion Pertinent past history: asthma Onset (ago): day(s) Consistency: constant Able to tolerate fluids by mouth: Yes Exacerbating factors: nothing Relieving factors: NSAID Associated symptoms: fever, headache, nasal congestion and cough Treatments prior to arrival: acetaminophen Related Data Home Medications ?Medication ?Instructions ?Recorded ?Confirmed aripiprazole 10 mg tablet (Abilify) 10 mg PO DAILY 06/19/23 06/19/23 buspirone 15 mg tablet 15 mg PO BID 06/19/23 06/19/23 dicyclomine 10 mg capsule 10 mg PO TID PRN abdominal pain 06/19/23 06/19/23 levothyroxine 75 mcg capsule 75 mcg PO DAILY 06/19/23 06/19/23 lisinopril 30 mg tablet 30 mg PO DAILY 06/19/23 06/19/23 loratadine 10 mg tablet (Allergy 10 mg PO DAILY 06/19/23 06/19/23 Relief (loratadine)) oxycodone 60 mg tablet,crush 60 mg PO BID 06/19/23 06/19/23 resistant,extended release 12 hr (OxyContin) simvastatin 20 mg tablet 20 mg PO DAILY 06/19/23 06/19/23 venlafaxine 150 mg 150 mg PO DAILY 06/19/23 06/19/23 capsule,extended release 24 hr Previous Rx's ?Medication ?Instructions ?Recorded doxycycline hyclate 100 mg capsule 100 mg PO BID 7 days #14 caps 06/15/23 calcium polycarbophil 625 mg 625 mg PO DAILY 30 days #30 tabs 06/19/23 tablet (FiberCon) diclofenac sodium 1 % topical gel 2 g topical QID PRN pain (scale 07/26/23 (Aleve (diclofenac)) score 1-3) #100 grams ketorolac 10 mg tablet 10 mg PO TID PRN pain 5 days #15 07/26/23 tabs cyclobenzaprine 10 mg tablet 10 mg PO TID PRN pain, muscle 10/27/23 spasm #15 tabs furosemide 40 mg tablet (Lasix) 40 mg PO DAILY #14 tabs 10/27/23 ketorolac 10 mg tablet 10 mg PO Q6H PRN pain 5 days #20 10/27/23 tabs benzonatate 100 mg capsule 100 mg PO TID PRN cough #14 caps 04/16/24 prednisone 20 mg tablet 40 mg (2 x 20 mg) PO DAILY 4 days 04/16/24 #8 tabs Allergies Allergy/AdvReac Type Severity Reaction Status Date / Time corn Allergy Abdominal Verified 04/16/24 05:58 Pain mushroom Allergy Abdominal Verified 04/16/24 05:58 Pain Sulfa (Sulfonamide Allergy Hives Verified 04/16/24 05:58 Antibiotics) Review of Systems 2 Review of Systems: Yes all other systems are reviewed and are negative Constitutional: Constitutional: Reports as per HPI [facility] Past Medical History Medical History Depression Anxiety Incontinence Achalasia GERD (gastroesophageal reflux disease) IBS (irritable bowel syndrome) Osteoarthritis cervical spine Edema Arthritis High blood cholesterol Hypertension Sinusitis Asthma Plantar fasciitis Surgical History History of tubal ligation History of laminectomy Family History Family History Mother AA (alcohol abuse) Cancer Father Hypertension Social History Social History Household Members: Adopted Family Housing: Apartment Alcohol intake: never Patient Tobacco Use Status: Former Tobacco user Cigarette Packs Per Day: 0.5 Cigarettes Per Day: 10 Years Smoked: 15 Smoked in Last 30 Days: No e-Cigarette/Vaping Use: Never Used Substance Use Type: Marijuana Advance Directives: No service: No Current occupational status: disabled (Neck and back pain) Current occupational exposures/hazards: No Sexual orientation: Unable to collect Gender identity: Unable to collect Cognitive needs: No Hearing needs: No Vision needs: Yes (wears glasses) Physical Exam 2 Vital Signs: Vital Signs: Last Vital Signs Temp 98.6 F 04/16/24 08:07 Pulse 104 H 04/16/24 08:07 Resp 14 04/16/24 08:07 BP 133/74 04/16/24 08:07 Pulse Ox 93 04/16/24 08:07 O2 Del Method Room Air 04/16/24 08:07 BMI result Body Mass Index 45.4 Const: General: cooperative, comfortable and no acute distress O rientation/consciousness: patient oriented x3 Limitations: no limitations HEENT: Head: Yes normal to inspection, Yes normocephalic and Yes atraumatic Ears: hearing grossly normal bilaterally General nose exam: Normal external nose present Face and sinus: Yes normal facial exam Mouth: Normal oral and palatal mucosa present, oropharynx normal and moist mucous membranes Throat: Yes posterior oropharynx normal Eyes: General: appearance normal, both eyes and all related structures E yelids: Yes eyelids normal Conjunctivae: conjunctivae normal Sclerae: s clerae normal Pupils: Equal, round and reactive pupils present EOM: EOMs intact bilaterally Neck: Neck: Yes normal visual inspection, Yes full ROM and Yes no lymphadenopathy Lymphatic: no lymphadenopathy noted Chest: Chest palpation & inspection: normal inspection of the chest Resp: Other: Lungs with inspiratory and expiratory wheezes noted throughout all lung bardales, more pronounced in the bilateral lower lung bases Effort & Inspection: normal respiratory effort and able to speak in complete sentences Cardio: Rate: regular rate Rhythm: regular rhythm Heart sounds: S1 normal heart sound present and S2 normal heart sound present GI: Inspection: Yes normal to inspection Skin: General skin exam: no rashes or lesions noted Trauma: no lacerations or abrasions Wounds: no wounds Neuro: General: patient oriented x3 and moves all extremities Cranial nerves: Yes Equal, round and reactive pupils present Extrem: General: Yes normal to inspection Right upper extremity: normal to inspection Left upper extremity: normal to inspection Right lower extremity: normal to inspection Left lower extremity: normal to inspection Course Reevaluation(s) Reevaluation #1: X-ray returns, revealing similar central vascular congestion. No effusions or pneumothorax. No focal consolidation. Labs returned, no leukocytosis, stable H&H, chemistry with no electrolyte derangement. No evidence of KAELA. Patient re-evaluated, feeling much better after receiving updraft. Symptoms likely attributed to URI/bronchitis. Will treat with course of prednisone, updrafts, and Tessalon Perles. Given strict return precautions. Lungs are clear now after receiving updraft. She is not orthostatic. Advised that we can administer IV fluids if she would like however patient reports that she is eager for discharge and would like to be discharged home. She understands and agrees with plan. Patient eager for discharge. Time: 08:40 Medications Administered Discontinued Medications Generic Name Dose Route Start Last Admin Trade Name Freq PRN Reason Stop Dose Admin Albuterol/Ipratropium 3 ml 04/16/24 07:22 04/16/24 07:38 Albuterol/Iprat 2.5/0.5mg 3 Ml Ampul.Neb INHALE 04/16/24 07:23 3 ml ONCE ONE Administration Prednisone 40 mg 04/16/24 07:06 04/16/24 07:20 Prednisone 20 Mg Tablet PO 04/16/24 07:07 40 mg ONCE ONE Administration Medical Decision Making Medical Decision Making [facility] Narrative: This is a 73-year-old female, with a history of asthma, hypertension, and achalasia, who presents emergency department with complaints of cough, shortness for breath, fevers, dizziness, and headaches x2 days. On arrival, patient is mildly hypertensive at 152/64. Lungs with inspiratory and expiratory wheezes noted throughout all lung bardales, worse in the bilateral lower lung bases. She has also endorsing dizziness, which is intermittent. She is neurologically intact. Differential diagnoses include URI, sinusitis, pneumonia, COVID, CHF Plan: Labs, EKG, chest x-ray, prednisone, ED bronch protocol Differential Diagnosis Differential Diagnoses: The differential diagnosis associated with the presentation includes See above Admission/Observation Consideration of admission/observation: Escalation of care including admission/observation considered Lab Data MDM Lab Attestation statement: I reviewed the patient's lab results. Negative viral swabs. See course comment for further details on lab results 04/16/24 07:18 04/16/24 07:18 Labs: Lab Results 04/16/24 04/16/24 04/16/24 Range/Units 06:01 07:18 08:15 WBC 7.4 (4.8-10.8) X10*3/uL RBC 3.99 L (4.20-5.50) X10*6/uL Hgb 12.6 (12.0-16.0) g/dl Hct 37.2 (37.0-47.0) % MCV 93.2 (80.0-98.0) fL MCH 31.6 (27.0-33.0) pg MCHC 33.9 (31.0-35.0) g/dl RDW 12.9 (11.0-16.0) % Plt Count 164 D (160-400) X10*3/uL MPV 10.0 (9.4-12.3) fL Immature Gran % (Auto) 0.1 (0.0-0.4) % Neut % (Auto) 73.9 H (45-73) % Lymph % (Auto) 14.3 L (20-40) % Mcintosh % (Auto) 10.3 (2-11) % Eos % (Auto) 1.1 (0-4) % Baso % (Auto) 0.3 (0-2) % Lymph # (Auto) 1.1 L (1.2-4.9) X10*3/uL Mcintosh # (Auto) 0.8 (0.1-1.2) X10*3/uL Eos # (Auto) 0.1 (0.0-0.4) X10*3/uL Baso # (Auto) 0.0 (0.0-0.2) X10*3/uL Abs Immat Gran (auto) 0.01 (0.00-0.03) X10*3/uL Absolute Neuts (auto) 5.5 (2.0-8.3) x10*3/uL Absolute Nucleated RBC 0.000 (0.0-0.012) X10*3/uL Nucleated RBC % (auto) 0.0 (0.0-0.2) /100WBC Sodium 139 (135-145) mmol/L Potassium 4.5 (3.3-5.1) mmol/L Chloride 106 (96-108) mmol/L Carbon Dioxide 23 (22-29) mmol/L Anion Gap 15 (12-20) BUN 17 H (9-16) mg/dL Creatinine 1.10 (0.5-1.4) mg/dL Estim Creat Clear Calc 56.8 Estimated GFR 49 Random Glucose 138 H (60-115) mg/dL Calcium 9.3 (8.4-10.2) mg/dL Magnesium 1.9 (1.6-2.6) mg/dL Total Bilirubin 0.3 (0.0-1.0) mg/dL Direct Bilirubin 0.1 (0.0-0.5) mg/dL AST 26 (5-31) U/L ALT 34 H (0-31) U/L Alkaline Phosphatase 96 (39-117) U/L Troponin I High Sens 4.9 (<3.5-17.0) ng/L B-Natriuretic Peptide < 10 (<100) pg/mL Total Protein 7.4 (6.5-8.0) g/dL Albumin 3.8 (3.5-5.0) g/dL Lipase 17 (8-78) U/L Urine Color Yellow Urine Appearance Clear Urine pH 6.5 (5.0-9.0) Ur Specific [place] 1.020 (1.005-1.025) Urine Protein Negative (Neg-Trace) mg/dL Urine Glucose (UA) Negative (Negative) mg/dL Urine Ketones Negative (Negative) mg/dL Urine Blood Negative (Negative) Urine Nitrite Negative (Negative) Ur Leukocyte Esterase Trace H (Negative) Urine RBC 0-2 (0-2) /HPF Urine WBC 0-5 (0-5) /HPF Ur Squamous Epith Cells 0-2 (0-2) /HPF Urine Bacteria None Seen (None Seen) Hyaline Casts 0-2 (0-2) /LPF Influenza Type A (PCR) NEGATIVE (Negative) Influenza Type B (PCR) NEGATIVE (Negative) RSV RNA Qual (PCR) NEGATIVE (Negative) SARS-CoV-2 RNA (RT-PCR) NEGATIVE (Negative) Independent Interpretation I performed an independent interpretation of an: EKG Interpretation: Normal sinus rhythm at a ventricular rate of 97 beats per minute, no ST elevation or depression. OR interval 172. There is a Q-wave noted in lead 3. No previous EKG for comparison. Radiology Impression Discussion of test interpretation with radiology: I have reviewed the radiologist's reading. Radiologist Impression: XR/XR chest 2V IMPRESSION: Similar central vascular congestion. No focal consolidation. Electronically signed by: Matthew Hall MD 04/16/2024 08:27 AM EDT RP Dictated By: Matthew Hall Chronic Conditions Patient?s care impacted by: Other (Asthma) Discharge Plan Discharge Clinical Impression: Upper respiratory infection Patient Disposition: Home, Self-Care Instructions: Upper Respiratory Infection (ED), Acute Bronchitis (ED) Additional Instructions: You were seen in the emergency department due to ongoing cough and shortness of breath. You likely have a virus that is contributing to your symptoms. It is very important that you stay well hydrated, get plenty of rest. Take ibuprofen or Tylenol as needed for fevers and pain. Take prednisone as prescribed as well as Tessalon. Prednisone is a steroid, you received your 1st dose in the department today, please take 1st dose tomorrow. Tessalon help with the cough, take this only as needed. Follow-up with your primary care physician. If any new or worsening symptoms occur including but not limited to chest pain, shortness breath, worsening symptoms, please return for re-evaluation. Prescriptions: New prednisone 20 mg tablet 40 mg PO DAILY 4 Days Qty: 8 0RF Rx Instructions: start on 04/17 benzonatate 100 mg capsule 100 mg PO TID PRN (Reason: cough) Qty: 14 0RF No Action ketorolac 10 mg tablet 10 mg PO TID PRN (Reason: pain) 5 Days Qty: 15 0RF diclofenac sodium [Aleve (diclofenac)] 1 % gel 2 g topical QID PRN (Reason: pain (scale score 1-3)) Qty: 100 0RF Rx Instructions: apply to single elbow, wrist or hand; for hand includes palm/fingers/back of hand doxycycline hyclate 100 mg capsule 100 mg PO BID 7 Days Qty: 14 0RF cyclobenzaprine 10 mg tablet 10 mg PO TID PRN (Reason: pain, muscle spasm) Qty: 15 0RF furosemide [Lasix] 40 mg tablet 40 mg PO DAILY Qty: 14 0RF ketorolac 10 mg tablet 10 mg PO Q6H PRN (Reason: pain) 5 Days Qty: 20 0RF venlafaxine 150 mg capsule,extended release 24hr 150 mg PO DAILY buspirone 15 mg tablet 15 mg PO BID levothyroxine 75 mcg capsule 75 mcg PO DAILY lisinopril 30 mg tablet 30 mg PO DAILY aripiprazole [Abilify] 10 mg tablet 10 mg PO DAILY simvastatin 20 mg tablet 20 mg PO DAILY oxycodone [OxyContin] 60 mg tablet,oral only,ext.rel.12 hr 60 mg PO BID loratadine [Allergy Relief (loratadine)] 10 mg tablet 10 mg PO DAILY dicyclomine 10 mg capsule 10 mg PO TID PRN (Reason: abdominal pain) calcium polycarbophil [FiberCon] 625 mg tablet 625 mg PO DAILY 30 Days Qty: 30 2RF Print Language: Sami
[2024-04-16] MEDS: predniSONE 20 MG TABLET 40 MG PO (07:20)
[2024-04-16 07:22] LABS: MANUAL DIFF FLAG NO
[2024-04-16 07:23] LABS: Basophils Percent Auto 0.3 % (0-2); Eosinophils Absolute Auto 0.1 X10*3/uL (0.0-0.4); Eosinophils Percent Auto 1.1 % (0-4); Hematocrit 37.2 % (37.0-47.0); Hemoglobin 12.6 g/dl (12.0-16.0); Imm Gran Abs Auto 0.01 X10*3/uL (0.00-0.03); Imm Gran Pct Auto 0.1 % (0.0-0.4); Lymphocytes Absolute Auto 1.1 X10*3/uL (1.2-4.9); Lymphocytes Percent Auto 14.3 % (20-40); Mean Corpuscular HGB Conc 33.9 g/dl (31.0-35.0); Mean Corpuscular Hemoglobin 31.6 pg (27.0-33.0); Mean Corpuscular Volume 93.2 fL (80.0-98.0); Monocytes Absolute Auto 0.8 X10*3/uL (0.1-1.2); Monocytes Percent Auto 10.3 % (2-11); Neutrophils Absolute Auto 5.5 x10*3/uL (2.0-8.3); Neutrophils Percent Auto 73.9 % (45-73); Platelet Count 164 X10*3/uL (160-400); Red Blood Count 3.99 X10*6/uL (4.20-5.50); Red Cell Distribution Width 12.9 % (11.0-16.0); White Blood Count 7.4 X10*3/uL (4.8-10.8)
[2024-04-16 07:33] VITALS: PULSE 100; RESP 14; O2SAT 94
[2024-04-16 07:38] LABS: Alanine Aminotransferase 34 U/L (0-31); Albumin Level 3.8 g/dL (3.5-5.0); Alkaline Phosphatase 96 U/L (39-117); Anion Gap 15 (12-20); Aspartate Amino Transferase 26 U/L (5-31); Bilirubin Direct 0.1 mg/dL (0.0-0.5); Bilirubin Total 0.3 mg/dL (0.0-1.0); Blood Urea Nitrogen 17 mg/dL (9-16); Calcium 9.3 mg/dL (8.4-10.2); Carbon Dioxide 23 mmol/L (22-29); Chloride 106 mmol/L (96-108); Creatinine Clr Calc Pharmacy 56.8; Estimated Glomerular Filt Rate 49; Glucose Random 138 mg/dL (60-115); Lipase 17 U/L (8-78); Magnesium 1.9 mg/dL (1.6-2.6); Potassium 4.5 mmol/L (3.3-5.1); Sodium 139 mmol/L (135-145); Total Protein 7.4 g/dL (6.5-8.0)
[2024-04-16] MEDS: Albuterol/Iprat 2.5/0.5MG 3 ML AMPUL.NEB INHALE (07:38)
[2024-04-16 07:43] LABS: B Type Natriuretic Peptide < 10 pg/mL (<100)
[2024-04-16 07:44] LABS: Troponin-I High Sensitivity 4.9 ng/L (<3.5-17.0)
[2024-04-16 07:47] VITALS: BP 121/69; BP 128/66; PULSE 100; PULSE 106
[2024-04-16 07:48] VITALS: BP 133/74; PULSE 105
[2024-04-16 08:07] VITALS: BP 133/74; PULSE 104; RESP 14; TEMP 37; O2SAT 93
--- NOTE | 2024-04-16 08:20 | PC.NURSE ---
report received from previous RN, patient resting on chair in room while granddaughter (also a patient) is on stretcher. not offering any complaints at this time, 18g PIV placed in LAC by this RN blood work drawn and sent, breathing treatment provided by RT.
[2024-04-16 08:21] LABS: Appearance Urine Clear; Color Urine Yellow; Glucose Urine UA Negative (Negative); Leukocyte Esterase Urine Trace (Negative); Nitrite Urine Negative (Negative); PH 6.5 (5.0-9.0); UMIC TRIGGER UACC YES; Urine Blood Negative (Negative); Urine Ketones Negative (Negative); Urine Protein Negative (Neg-Trace)
[2024-04-16 08:26] LABS: Bacteria Urine None Seen (None Seen); Hyaline Casts Urine 0-2 /LPF (0-2); RBC Urine 0-2 /HPF (0-2); Squamous Epithelial Cell Urine 0-2 /HPF (0-2); WBC Urine 0-5 /HPF (0-5)
[2024-04-16 09:08] VITALS: BP 133/74; PULSE 95; RESP 14; TEMP 37; O2SAT 93
== END 2024-04-16 09:09 | disposition home or self-care (01) ==
PROVIDERS: Physician Assistant Medical; Emergency Provider Emergency Medicine Emergency Medical Services; PCP Nurse Practitioner Family
DX: J06.9 Acute upper respiratory infection, unspecified (principal); R06.02 Shortness of breath; R50.9 Fever, unspecified; R05.9 Cough, unspecified; Z03.818 Encounter for observation for suspected exposure to other biological agents ruled out; I10 Essential (primary) hypertension; E78.00 Pure hypercholesterolemia, unspecified; J45.909 Unspecified asthma, uncomplicated; Z79.899 Other long term (current) drug therapy; Z79.02 Long term (current) use of antithrombotics/antiplatelets; Z87.891 Personal history of nicotine dependence
CPT/HCPCS: 0241U; 36415; 71046; 80048; 80076; 81001; 83690; 83735; 83880; 84484; 85025; 93005; 94640; 99283; 99284; 99285

== ENCOUNTER 2024-06-27 20:14 | Emergency (ER) | payer OTHER, SELFPAY ==
--- NOTE | ~2024-06-27 | XR_ITS ---
EXAMINATION: XR CHEST CLINICAL INFORMATION: Fall COMPARISON: 04/16/2024 TECHNIQUE: Frontal view of the chest was obtained. FINDINGS: No significant abnormality is noted involving the heart, lungs, mediastinum, bony thorax or soft tissues. There is some mild central pulmonary prominence again seen. XR/XR chest 1V IMPRESSION: No acute intrathoracic disease. Electronically signed by: Sundar Pierson MD 06/27/2024 09:49 PM EST
--- NOTE | ~2024-06-27 | CT_ITS ---
EXAMINATION CT HEAD WITHOUT CONTRAST CT CERVICAL SPINE WITHOUT CONTRAST CLINICAL INFORMATION: Neck pain, fall COMPARISON: None TECHNIQUE: CT of the head was performed without intravenous contrast. Reformatted axial, coronal, and sagittal images were reviewed. Then, multidetector CT of the cervical spine was performed without intravenous contrast. Reformatted axial, coronal and sagittal images were reviewed. This CT examination was performed using dose optimization techniques as appropriate, variously including the following: *Automated exposure control *Adjustment of mA and/or kV according to patient size (this includes techniques or standardized protocols for targeted exams where dose is matched to indication/reason for exam; i.e. extremities or head) *Use of iterative reconstruction technique DLP: 1435 mGy-cm FINDINGS: HEAD: No intracranial hemorrhage, extra-axial fluid collection, or midline shift is identified. Patton-white matter differentiation is preserved. The ventricles are within normal limits. Basal cisterns are within normal limits. Paranasal sinuses are clear. Mastoid air cells and middle ear cavities are clear. No acute calvarial fractures. CERVICAL SPINE: There is no fracture, malalignment or prevertebral soft tissue abnormality seen in the cervical spine. There is no abnormal widening of the predental space, separation of the lateral masses of C1 or facet joint distraction. Vertebral body and intervertebral disc height are normal. Multilevel degenerative changes resulting in varying degrees of central canal and neural foraminal stenosis. The visualized portions of the lung parenchyma is unremarkable. CT/CT cervical spine wo IV con IMPRESSION: CT HEAD: 1. No acute intracranial abnormality. CT CERVICAL SPINE: 1. No acute fracture or malalignment of the cervical spine. 2. Multilevel degenerative changes. Electronically signed by: Chuck Howell DO 06/27/2024 10:14 PM [facility] [place]
--- NOTE | ~2024-06-27 | CT_ITS ---
EXAMINATION CT HEAD WITHOUT CONTRAST CT CERVICAL SPINE WITHOUT CONTRAST CLINICAL INFORMATION: Neck pain, fall COMPARISON: None TECHNIQUE: CT of the head was performed without intravenous contrast. Reformatted axial, coronal, and sagittal images were reviewed. Then, multidetector CT of the cervical spine was performed without intravenous contrast. Reformatted axial, coronal and sagittal images were reviewed. This CT examination was performed using dose optimization techniques as appropriate, variously including the following: *Automated exposure control *Adjustment of mA and/or kV according to patient size (this includes techniques or standardized protocols for targeted exams where dose is matched to indication/reason for exam; i.e. extremities or head) *Use of iterative reconstruction technique DLP: 1435 mGy-cm FINDINGS: HEAD: No intracranial hemorrhage, extra-axial fluid collection, or midline shift is identified. Patton-white matter differentiation is preserved. The ventricles are within normal limits. Basal cisterns are within normal limits. Paranasal sinuses are clear. Mastoid air cells and middle ear cavities are clear. No acute calvarial fractures. CERVICAL SPINE: There is no fracture, malalignment or prevertebral soft tissue abnormality seen in the cervical spine. There is no abnormal widening of the predental space, separation of the lateral masses of C1 or facet joint distraction. Vertebral body and intervertebral disc height are normal. Multilevel degenerative changes resulting in varying degrees of central canal and neural foraminal stenosis. The visualized portions of the lung parenchyma is unremarkable. CT/CT head/brain wo IV con IMPRESSION: CT HEAD: 1. No acute intracranial abnormality. CT CERVICAL SPINE: 1. No acute fracture or malalignment of the cervical spine. 2. Multilevel degenerative changes. Electronically signed by: Chuck Howell DO 06/27/2024 10:14 PM [facility]
[2024-06-27 20:22] VITALS: BP 140/71; PULSE 85; RESP 18; TEMP 37.1; O2SAT 97; BMI 41.6
[2024-06-27 21:07] LABS: MANUAL DIFF FLAG NO
[2024-06-27 21:08] LABS: Basophils Percent Auto 0.2 % (0-2); Eosinophils Absolute Auto 0.2 X10*3/uL (0.0-0.4); Eosinophils Percent Auto 1.4 % (0-4); Hematocrit 34.5 % (37.0-47.0); Imm Gran Abs Auto 0.04 X10*3/uL (0.00-0.03); Imm Gran Pct Auto 0.4 % (0.0-0.4); Lymphocytes Absolute Auto 1.6 X10*3/uL (1.2-4.9); Lymphocytes Percent Auto 14.6 % (20-40); Mean Corpuscular HGB Conc 34.8 g/dl (31.0-35.0); Mean Corpuscular Hemoglobin 32.1 pg (27.0-33.0); Mean Corpuscular Volume 92.2 fL (80.0-98.0); Mean Platelet Volume 9.3 fL (9.4-12.3); Monocytes Absolute Auto 0.9 X10*3/uL (0.1-1.2); Monocytes Percent Auto 7.9 % (2-11); Neutrophils Absolute Auto 8.3 x10*3/uL (2.0-8.3); Neutrophils Percent Auto 75.5 % (45-73); Platelet Count 220 X10*3/uL (160-400); Red Blood Count 3.74 X10*6/uL (4.20-5.50); Red Cell Distribution Width 13.4 % (11.0-16.0)
[2024-06-27 21:13] LABS: INTERNATIONAL NORM RATIO 1.2 (0.9-1.1); Prothrombin Time 13.5 SEC (10.9-12.4)
[2024-06-27 21:23] LABS: Alanine Aminotransferase 52 U/L (0-31); Albumin Level 3.9 g/dL (3.5-5.0); Alkaline Phosphatase 88 U/L (39-117); Anion Gap 15 (12-20); Aspartate Amino Transferase 46 U/L (5-31); Bilirubin Total 0.6 mg/dL (0.0-1.0); Blood Urea Nitrogen 17 mg/dL (9-16); Calcium 9.4 mg/dL (8.4-10.2); Carbon Dioxide 25 mmol/L (22-29); Chloride 105 mmol/L (96-108); Creatinine Clr Calc Pharmacy 63.8; Estimated Glomerular Filt Rate 55; Glucose Random 120 mg/dL (60-115); Potassium 3.9 mmol/L (3.3-5.1); Sodium 141 mmol/L (135-145); Total Protein 7.2 g/dL (6.5-8.0)
--- NOTE | 2024-06-27 23:15 | ED_ITS ---
HPI - Fall General Chief Complaint: Fall Stated Complaint: fall Time Seen by Provider: 06/27/24 23:15 Source: patient Mode of arrival: ambulatory Limitations: no limitations History of Present Illness ED Provider: Dr. Ruiz HPI Narrative: 73 yo female with a history of obesity, fatty liver disease, chronic edema, high chol, HTN who presents with left leg, left chest and neck pain after falling down 2 steps yesterday. No LOC Related Data Home Medications ?Medication ?Instructions ?Recorded ?Confirmed aripiprazole 10 mg tablet (Abilify) 10 mg PO DAILY 06/19/23 06/19/23 buspirone 15 mg tablet 15 mg PO BID 06/19/23 06/19/23 dicyclomine 10 mg capsule 10 mg PO TID PRN abdominal pain 06/19/23 06/19/23 levothyroxine 75 mcg capsule 75 mcg PO DAILY 06/19/23 06/19/23 lisinopril 30 mg tablet 30 mg PO DAILY 06/19/23 06/19/23 loratadine 10 mg tablet (Allergy 10 mg PO DAILY 06/19/23 06/19/23 Relief (loratadine)) oxycodone 60 mg tablet,crush 60 mg PO BID 06/19/23 06/19/23 resistant,extended release 12 hr (OxyContin) simvastatin 20 mg tablet 20 mg PO DAILY 06/19/23 06/19/23 venlafaxine 150 mg 150 mg PO DAILY 06/19/23 06/19/23 capsule,extended release 24 hr Previous Rx's ?Medication ?Instructions ?Recorded doxycycline hyclate 100 mg capsule 100 mg PO BID 7 days #14 caps 06/15/23 calcium polycarbophil 625 mg 625 mg PO DAILY 30 days #30 tabs 06/19/23 tablet (FiberCon) diclofenac sodium 1 % topical gel 2 g topical QID PRN pain (scale 07/26/23 (Aleve (diclofenac)) score 1-3) #100 grams ketorolac 10 mg tablet 10 mg PO TID PRN pain 5 days #15 07/26/23 tabs cyclobenzaprine 10 mg tablet 10 mg PO TID PRN pain, muscle 10/27/23 spasm #15 tabs furosemide 40 mg tablet (Lasix) 40 mg PO DAILY #14 tabs 10/27/23 ketorolac 10 mg tablet 10 mg PO Q6H PRN pain 5 days #20 10/27/23 tabs benzonatate 100 mg capsule 100 mg PO TID PRN cough #14 caps 04/16/24 prednisone 20 mg tablet 40 mg (2 x 20 mg) PO DAILY 4 days 04/16/24 #8 tabs furosemide 40 mg tablet (Lasix) 40 mg PO DAILY #30 tabs 06/27/24 meloxicam 7.5 mg tablet 7.5 mg PO DAILY #14 tabs 06/27/24 Allergies Allergy/AdvReac Type Severity Reaction Status Date / Time corn Allergy Abdominal Verified 06/27/24 20:26 Pain mushroom Allergy Abdominal Verified 06/27/24 20:26 Pain Sulfa (Sulfonamide Allergy Hives Verified 06/27/24 20:26 Antibiotics) Review of Systems 2 Review of Systems: Yes all other systems are reviewed and are negative Neurologic: Denies Sensory deficit (Neuro) [facility] Past Medical History Medical History Depression Anxiety Incontinence Achalasia GERD (gastroesophageal reflux disease) IBS (irritable bowel syndrome) Osteoarthritis cervical spine Edema Arthritis High blood cholesterol Hypertension Sinusitis Asthma Plantar fasciitis Surgical History History of tubal ligation History of laminectomy Family History Family History Mother AA (alcohol abuse) Cancer Father Hypertension Social History Social History Household Members: Adopted Family Housing: Apartment Alcohol intake: never Patient Tobacco Use Status: Former Tobacco user Cigarette Packs Per Day: 0.5 Cigarettes Per Day: 10 Years Smoked: 15 Smoked in Last 30 Days: No e-Cigarette/Vaping Use: Never Used Use of substances other than those prescribed or required for medical reasons: No Substance Use Type: Marijuana Advance Directives: No Advance Directives Information Provided: No Do you have a plan to hurt others: No Plan service: No Current occupational status: disabled (Neck and back pain) Current occupational exposures/hazards: No Sexual orientation: Unable to collect Gender identity: Unable to collect Cognitive needs: No Hearing needs: No Vision needs: Yes (wears glasses) Physical Exam 2 Vital Signs: Vital Signs: Last Vital Signs Temp 98.3 F 06/27/24 23:23 Pulse 79 06/27/24 23:23 Resp 18 06/27/24 23:23 BP 142/61 H 06/27/24 23:23 Pulse Ox 93 06/27/24 23:23 O2 Del Method Room Air 06/27/24 23:23 BMI result Body Mass Index 41.6 Const: Nutritional Appearance: average body habitus and obese O rientation/consciousness: oriented to person and patient oriented x3 L imitations: no limitations HEENT: Head: Yes normal to inspection Ears: external ears normal General nose exam: Normal external nose present Mouth: Normal oral and palatal mucosa present and oropharynx normal Throat: Yes posterior oropharynx normal Eyes: General: appearance normal, both eyes and all related structures Neck: Other: supple Neck: Yes normal visual inspection Chest: Other: no reproducible chest pain Resp: Auscultation: clear to auscultation bilaterally Cardio: Jugular venous distension: no JVD Rate: regular rate Rhythm: r egular rhythm Heart sounds: S1 normal heart sound present and S2 normal heart sound present GI: Inspection: Yes normal to inspection Palpation (GI): Soft to palpation, nontender and No hepatosplenomegaly present Auscultation: normal bowel sounds : General: Yes no CVA tenderness Back/Spine/Pelvis: Back: no CVA tenderness Skin: General skin exam: no rashes or lesions noted Neuro: General: oriented to person and patient oriented x3 Cranial nerves: Yes CN's II-XII intact bilaterally Motor exam (neuro): 5/5 motor strength present throughout Sensory Exam: No Sensory deficit (Neuro) Extrem: Other: chronic 3+ edema bilaterally Psych: Appearance: grossly normal Course Reevaluation(s) Reevaluation #1: CT of head and neck negative for acute trauma, edema of the legs is chronic will place on NSAIDS and lasix Time: 23:41 Medications Administered Discontinued Medications Generic Name Dose Route Start Last Admin Trade Name Jamieq PRN Reason Stop Dose Admin Furosemide 40 mg 06/27/24 23:41 06/27/24 23:45 Furosemide 40 Mg Tablet PO 06/27/24 23:42 40 mg ONCE ONE Administration Protocol Naproxen 500 mg 06/27/24 23:41 06/27/24 23:45 Naproxen 500 Mg Tablet PO 06/27/24 23:42 500 mg ONCE ONE Administration Medical Decision Making Differential Diagnosis Differential Diagnoses: The differential diagnosis associated with the presentation includes (rib fractures, subdural hematoma, cervical spine fracture, chronic edema) Admission/Observation Consideration of admission/observation: Escalation of care including admission/observation considered (upon arrival patient was considered for admission) Lab Data 06/27/24 21:03 06/27/24 21:03 Labs: Lab Results 06/27/24 Range/Units 21:03 WBC 11.0 H (4.8-10.8) X10*3/uL RBC 3.74 L (4.20-5.50) X10*6/uL Hgb 12.0 (12.0-16.0) g/dl Hct 34.5 L (37.0-47.0) % MCV 92.2 (80.0-98.0) fL MCH 32.1 (27.0-33.0) pg MCHC 34.8 (31.0-35.0) g/dl RDW 13.4 (11.0-16.0) % Plt Count 220 D (160-400) X10*3/uL MPV 9.3 L (9.4-12.3) fL Immature Gran % (Auto) 0.4 (0.0-0.4) % Neut % (Auto) 75.5 H (45-73) % Lymph % (Auto) 14.6 L (20-40) % Ransom % (Auto) 7.9 (2-11) % Eos % (Auto) 1.4 (0-4) % Baso % (Auto) 0.2 (0-2) % Lymph # (Auto) 1.6 (1.2-4.9) X10*3/uL Ransom # (Auto) 0.9 (0.1-1.2) X10*3/uL Eos # (Auto) 0.2 (0.0-0.4) X10*3/uL Baso # (Auto) 0.0 (0.0-0.2) X10*3/uL Abs Immat Gran (auto) 0.04 H (0.00-0.03) X10*3/uL Absolute Neuts (auto) 8.3 (2.0-8.3) x10*3/uL Absolute Nucleated RBC 0.000 (0.0-0.012) X10*3/uL Nucleated RBC % (auto) 0.0 (0.0-0.2) /100WBC PT 13.5 H (10.9-12.4) SEC INR 1.2 H (0.9-1.1) Sodium 141 (135-145) mmol/L Potassium 3.9 (3.3-5.1) mmol/L Chloride 105 (96-108) mmol/L Carbon Dioxide 25 (22-29) mmol/L Anion Gap 15 (12-20) BUN 17 H (9-16) mg/dL Creatinine 1.00 (0.5-1.4) mg/dL Estim Creat Clear Calc 63.8 Estimated GFR 55 Random Glucose 120 H (60-115) mg/dL Calcium 9.4 (8.4-10.2) mg/dL Total Bilirubin 0.6 (0.0-1.0) mg/dL AST 46 H (5-31) U/L ALT 52 H (0-31) U/L Alkaline Phosphatase 88 (39-117) U/L Total Protein 7.2 (6.5-8.0) g/dL Albumin 3.9 (3.5-5.0) g/dL Independent Interpretation I performed an independent interpretation of an: Plain X-Ray (CXR: no rib fractures or PTX) and CT Scan (cervical: djd Head: atrophy no bleed) Chronic Conditions Patient?s care impacted by: Hypertension and Other (obesity) Discharge Plan Discharge Clinical Impression: Acute head trauma, Acute neck pain, Edema Patient Disposition: Home, Self-Care Instructions: Head Injury (ED), Leg Edema (ED) Prescriptions: New meloxicam 7.5 mg tablet 7.5 mg PO DAILY Qty: 14 0RF furosemide [Lasix] 40 mg tablet 40 mg PO DAILY Qty: 30 0RF No Action ketorolac 10 mg tablet 10 mg PO TID PRN (Reason: pain) 5 Days Qty: 15 0RF diclofenac sodium [Aleve (diclofenac)] 1 % gel 2 g topical QID PRN (Reason: pain (scale score 1-3)) Qty: 100 0RF Rx Instructions: apply to single elbow, wrist or hand; for hand includes palm/fingers/back of hand prednisone 20 mg tablet 40 mg PO DAILY 4 Days Qty: 8 0RF Rx Instructions: start on 04/17 benzonatate 100 mg capsule 100 mg PO TID PRN (Reason: cough) Qty: 14 0RF doxycycline hyclate 100 mg capsule 100 mg PO BID 7 Days Qty: 14 0RF cyclobenzaprine 10 mg tablet 10 mg PO TID PRN (Reason: pain, muscle spasm) Qty: 15 0RF furosemide [Lasix] 40 mg tablet 40 mg PO DAILY Qty: 14 0RF ketorolac 10 mg tablet 10 mg PO Q6H PRN (Reason: pain) 5 Days Qty: 20 0RF venlafaxine 150 mg capsule,extended release 24hr 150 mg PO DAILY buspirone 15 mg tablet 15 mg PO BID levothyroxine 75 mcg capsule 75 mcg PO DAILY lisinopril 30 mg tablet 30 mg PO DAILY aripiprazole [Abilify] 10 mg tablet 10 mg PO DAILY simvastatin 20 mg tablet 20 mg PO DAILY oxycodone [OxyContin] 60 mg tablet,oral only,ext.rel.12 hr 60 mg PO BID loratadine [Allergy Relief (loratadine)] 10 mg tablet 10 mg PO DAILY dicyclomine 10 mg capsule 10 mg PO TID PRN (Reason: abdominal pain) calcium polycarbophil [FiberCon] 625 mg tablet 625 mg PO DAILY 30 Days Qty: 30 2RF Referrals: Anna Gomez [Primary Care Provider] - 5 days Print Language: Albanian
[2024-06-27 23:23] VITALS: BP 142/61; PULSE 79; RESP 18; TEMP 36.8; O2SAT 93
[2024-06-27] MEDS: NaPROXEN 500 MG TABLET PO (23:45)
[2024-06-27] MEDS: Furosemide 40 MG TABLET PO (23:45)
[2024-06-27 23:50] VITALS: BP 142/61; PULSE 79; RESP 18; TEMP 36.8; O2SAT 93
== END 2024-06-27 23:51 | disposition home or self-care (01) ==
PROVIDERS: Physician Assistant; Emergency Provider Emergency Medicine; PCP Nurse Practitioner Family
DX: S09.90XA Unspecified injury of head, initial encounter (principal); W10.8XXA Fall (on) (from) other stairs and steps, initial encounter; M54.2 Cervicalgia; R60.0 Localized edema; I10 Essential (primary) hypertension; E78.5 Hyperlipidemia, unspecified; J45.909 Unspecified asthma, uncomplicated; Z87.891 Personal history of nicotine dependence; Y93.9 Activity, unspecified; Y92.9 Unspecified place or not applicable; Y99.9 Unspecified external cause status
CPT/HCPCS: 36415; 70450; 71045; 72125; 80053; 85025; 85610; 99284